=== PATIENT | male | born 1955 | race Caucasian/White ===

== ENCOUNTER 2020-11-21 01:34 | Outpatient (CLI) | payer OTHER, SELFPAY ==
--- NOTE | 2020-11-21 14:08 | ST.MBS ---
Date of Service Date of service: 11/21/20 Time of Service: 14:08 Modified Barium Swallow Study Findings: Videofluoroscopic Swallowing Evaluation / Modified Barium Swallow Study (VFSE/MBSS) Speech Language Pathology Report HPI: Pt is a 65 year old male referred for VFSE/MBSS given overt s/sx aspiration during recent clinical swallow evaluation (11/09/20); patient is s/p right arytenoidectomy and right cordotomy on 09/02/2020 with hospital course notable for abnormal postop chest x-ray which improved following day; prolonged hospitalization in fall of 2018 requiring multiple intubations, felt to be likely cause for b/l VF immobility. PMHx: Acute metabolic encephalopathy Asthma Type 2 diabetes mellitis History of tracheostomy Vocal cord paralysis, bilateral/complete Dysphonia Previous Imaging: ENT / Laryngoscopy - 11/17/20 Bilateral vf paralysis, median-paramedian position; right arytenoid mucosa hoods prior surgical site; posterior glottic opening visible SUBJECTIVE: Patient arrived breathing/speaking comfortably with intermittent biphasic stridor (inhalation>exhalation); Complains of ongoing coughing fits with excessive phlegm; denies difficulties with tolerating regular solid foods/thin liquids, also reports trial of Tessalon pearls once daily since visit with ENT which he is currently unsure if this is helpful MDADI: Global Score 5; Composite Score 84.2 OBJECTIVE: Videofluoroscopic Swallow Evaluation (VFSE/MBSS) was conducted in the lateral and [id number] projections by Speech-Language Pathologist, in collaboration with Radiologist, to evaluate oropharyngeal swallow function. Anatomic view under fluoroscopy: WFL PO barium contrast trials: Oral barium water soluble contrast was administered as follows: IDDSI Level 0 Varibar thin liquid (40% w/v) IDDSI Level 2 Varibar nectar thick/mildly thick liquid (40% w/v) IDDSI Level 3 Varibar thin honey/liquidised/moderately-thick (40% w/v) IDDSI Level 4 Varibar pudding/pureed/extremely thick (40% w/v) IDDSI Level 7 Regular Solid: 1/2 jerry cracker coated in 3 mL Varibar pudding PHYSIOLOGIC FINDINGS Oral Phase 1 Lip Closure: 0-No labial escape 2 Tongue Control: 0- Cohesive bolus between tongue to palatal seal 3 Bolus Preparation/Mastication: 0- Timely and efficient chewing/mashing 4 Bolus Transport/Lingual Motion: 0- Brisk tongue motion 5 Oral residue: 1- Trace residue lining oral structures Location: tongue 6 Initiation of pharyngeal swallow: 0- Bolus head at posterior angle of ramus; first hyoid excursion Pharyngeal Phase 7 Velar Elevation: 0- No bolus between soft palate and pharyngeal wall 8 Laryngeal Elevation: 0- Complete superior movement of thyroid cartilage with complete approximation of arytenoids to epiglottic petiole 9 Anterior Hyoid Excursion: 0- Complete anterior movement 10 Epiglottic Movement: 0- Complete inversion 11 Laryngeal Vestibule Closure: 0- Complete; no air/contrast in laryngeal vestibule Penetration not observed 12 Pharyngeal Stripping Wave: 0- Present; complete 13 Pharyngeal Contraction: 0- Complete 14 PES/UES Openin- Complete distension and complete duration; no obstruction of flow 15 Tongue Base Retraction: 0- No contrast between tongue base and posterior pharyngeal wall 16 Pharyngeal residue: 0-Complete pharyngeal clearance [place] Pharyngeal Residue Severity Rating Scale (YPRS) (Rachel, et al, 2015) Vallecula Residue Severity I None 0% No residue Pyriform Sinus Residue Severity I None 0% No residue Esophageal Phase 17 Esophageal Clearance Upright Position: 0-Complete clearance; esophageal coating; small posterior hypertrophy noted at level of cervical esophagus between C4-C5; does not appear to effect efficiency of swallow/airway safety (see below) NOTE: This study was performed for interpretation only of the oropharyngeal and pharyngoesophageal domains of swallowing. It is not intended to diagnose any other radiologic abnormalities or substitute for a formal esophagram study. Overall 8-Point Penetration-Aspiration Scale (PAS) (Rosenpalmerk, et al, 1996) 1 - No material enters the airway. 2 - Material enters the airway, remains above the vocal folds, and is ejected from the airway. 3 - Material enters the airway, remains above the vocal folds, and is not ejected from the airway. 4 - Material enters the airway, contacts the vocal folds, and is ejected from the airway. 5 - Material enters the airway, contacts the vocal folds, and is not ejected from the airway. 6 - Material enters the airway, passes below the vocal folds, and is ejected into the larynx or out of the airway. 7 - Material enters the airway, passes below the vocal folds, and is not ejected from the trachea despite effort. 8 - Material enters the airway, passes below the vocal folds, and no effort is made to eject. DIGEST Score: Safety Grade 0 / Efficiency Grade 0 = 0 - Overall No Pharyngeal Impairment (0=No Impairment, 1=Mild, 2=Moderate, 3=Severe, 4=Life Threatening) The Dynamic Imaging Grade of Swallowing Toxicity (DIGEST) Score represents a set of structured criteria primarily validated for head and neck cancer patients to grade the interaction of safety, efficiency, and overall impairment of the pharyngeal swallow, meant to assist in prioritization of targets for dysphagia treatment planning. (Wally et al. Cancer. 2017;123(1):62-70) Clinical Indicator(s) of Prandial/Postprandial Aspiration: N/A Dysphagia Outcome and Severity Scale (NAPOLEON) LEVEL 7 - Full PO: normal diet - Normal in all situations IMPRESSIONS: Swallow safety is preserved; swallow efficiency is preserved. Oropharyngeal swallow function appears WFL; patient denies abnormal sensation(s) throughout and after completion of procedure; small posterior hypertrophy noted at level of cervical esophagus between C4-C5; does not appear to effect function of oropharyngeal swallow. Patient continues to demonstrate dysphonia as characterized by breathy/hoarse vocal quality with intermittent biphasic stridor (inhalation>exhalation). Patient appears to be at low risk for potential aspiration PNA, pulmonary compromise and low risk for malnutrition/dehydration. Swallow prognosis is excellent given lack of physiologic abnormalities noted from today's study; voice quality is likely to improve with continued participation in DEPARTMENT STORE MANAGER plan of care; patient continues to be a good candidate for behavioral voice rehabilitation. PLAN: Diet recommendation: IDDSI Level 7-Regular Solids, 0-Thin Liquids Risk Management: Continue with behavioral reflux precautions, including upright position during + 90 mins after meals. Control risk factors for aspiration pneumonia via (a) thorough oral hygiene & (b) maintaining physical mobility as tolerated Specialist referrals: N/A - Pt has scheduled ENT f/u appt Ancillary tests: N/A Therapy: Recommend subsequent outpatient session with DEPARTMENT STORE MANAGER for continued behavioral voice rehabilitation; re-administer RSI for monitoring of reflux symptomology Follow-up exam: N/A Thank you for allowing me to take part in this patient's care. Please feel free to contact me with any questions/concerns. Margaret Greer MA [facility]-DEPARTMENT STORE MANAGER Speech Language Pathologist Coding CPT Codes MOTION FLUOROSCOPY/SWALLOW - [id number] ([id number])
--- NOTE | 2020-11-21 14:53 | DI.RAD_ITS ---
Exam(s) RF MODIFIED SPEECH BA SWALLOW TECHNIQUE: Modified barium swallow was performed in conjunction with speech pathology. CONTRAST MATERIAL: Oral barium Oral water soluble contrast was administered. COMPARISON: No exams were available for comparison FINDINGS: Fluoroscopy was provided by the radiologist during modified barium swallow study performed in conjunc tion with the speech therapist. Please see speech pathology report. There was no aspiration evident during this study. IMPRESSION: No aspiration evident See speech pathologist report RADIATION DOSE DELIVERED: natalia Estrada=23.9 mGy
[2020-11-21] MEDS: Barium Sulfate 81% w/w for Oral Suspension 148 GM BTL PO (15:09)
[2020-11-21] MEDS: Barium Sulfate 40% W/V 240 ML BTL PO (15:10)
[2020-11-21] MEDS: Barium Sulfate 40% W/V 1500 CPS 250 ML BTL PO (15:11)
[2020-11-21] MEDS: Barium Sulfate Oral Paste 40% W/V 230 ML TUBE PO (15:11)
== END 2020-11-21 01:54 ==
PROVIDERS: PCP Otolaryngology; Visit Provider Speech-Language Pathologist
DX: J38.02 Paralysis of vocal cords and larynx, bilateral (principal); Z90.89 Acquired absence of other organs; R49.0 Dysphonia
CPT/HCPCS: 92611; 74221

== ENCOUNTER 2020-11-21 02:55 | Outpatient (CLI) | payer OTHER, SELFPAY ==
[2020-11-21 11:33] LABS: Source Nasal/Nares
[2020-11-21 16:50] LABS: COVID-19 PCR Negative (Negative)
== END 2020-11-21 02:56 | disposition home or self-care (01) ==
LOC: LBO 02:55
PROVIDERS: PCP Otolaryngology; Visit Provider Family Medicine
DX: Z20.822 Contact with and (suspected) exposure to COVID-19 (principal); Z01.818 Encounter for other preprocedural examination
CPT/HCPCS: 87635

== ENCOUNTER 2024-04-13 01:37 | Outpatient (CLI) | payer OTHER, SELFPAY ==
--- NOTE | 2024-04-13 09:09 | ST.MBS ---
Date of Service Date of service: 04/13/24 Time of Service: 09:00 Modified Barium Swallow Study Findings: Video fluoroscopic Swallowing Evaluation (VFSE) / Modified Barium Swallow Study (MBSS) Speech Language Pathology Report Patient referred for VFSE/MBSS from Mattie Busby secondary to dysphagia. HPI & Patient report of function: Patient is a 69 yo male who was referred for MBSS secondary to symptoms of 'liquids going down the wrong way' occurring daily, which has been ongoing for the past several months. He notes this occasionally happens with solids. No issues with taking pills. No changes with voice since 2020. No recent hx pneumonia. PMHx: Mo has a history of bilateral vocal cord paralysis s/p hx prolonged and recurrent intubations during hospitalization following suicide attempts in 2018. He is s/p laryngeal surgeries including R arytenoiectomy in August 2020. He underwent a prior MBSS in November 2020 which revealed normal oral pharyngeal swallow function. Patient observed to breathe/speak comfortably with intermittent biphasic stridor. He states he tried voice therapy in the past but it was not a positive experience and he discontinued it. IMPRESSIONS: Oral pharyngeal swallow function is within functional limits. There is some mildly impaired sensory function noted: with mild vallecular retention of pudding, the patient did not feel residue, though all residue is eventually cleared spontaneously with repeat swallows/liquid wash. There is no evidence of penetration/aspiration/pharyngeal retention during the study. Overall study appears comparable with last assessment in 2020. Findings and film reviewed with patient at end of study. Education provided re: physiology of swallowing and impacts of bilateral vocal fold paralysis/chronic heightened risk for aspiration. While this study showed WNL oral pharygneal strength and coordination, ultimately it is a 'snapshot' in time, and thus possible that it is not fully guest experience representative of normal habits (eg drinking quickly, larger sips/bites, multi-tasking while drinking/eating). This may explain symptoms. Encouraged patient to focus on small/single/slow sips and bites. Mo was not interested in returning for MOTORCYCLE DELIVERER services for voice. RECOMMENDATIONS: Diet Texture Recommendation:? IDDSI LEVEL SOLIDS 7-Regular Solids LIQUIDS 0-Thin Liquids MEDICATIONS Whole with sip liquids Risk Management Strategies:? Small bites, approx [id number] Small sips, approx 10 mL Encourage avoidance of straws Alternate solids/liquids as able Multiple swallows per bolus to encourage clearance of pharyngeal stasis/residue Control risk factors for aspiration pneumonia via (a) thorough oral hygiene & (b) maintaining physical mobility as tolerated PLAN: Evaluation only. Results reviewed at time of evaluation. Patient expressed he is not interested in MOTORCYCLE DELIVERER services for trial of voice therapy. If he changes his mind, we would be happy to see him for voice intervention. Anticipate some maladaptive tension-holding patterns further contributing to hoarseness. OBJECTIVE Videofluoroscopic Swallow Evaluation (VFSE/MBSS) was conducted in the lateral projection by Speech-Language Pathologist, in collaboration with Radiologist, to evaluate oropharyngeal swallow function. Anatomic view under fluoroscopy: WFL PO Barium Contrast Trials Oral barium water-soluble contrast was administered as follows: IDDSI Level 0 Varibar thin liquid (40% w/v) IDDSI Level 2 Varibar nectar thick/mildly thick liquid (40% w/v) IDDSI Level 4 Varibar pudding/pureed/extremely thick (40% w/v) IDDSI Level 7 Regular Solid: 1/2 jerry cracker coated in 3 mL Varibar pudding MBSImP Component Scores: COMPONENT Scale SCORE 1 Lip closure (0-4) 0 Resulted in no labial escape 2 Hold Position (0-3) 0 Maintained a cohesive bolus between tongue to palatal seal 3 Bolus Preparation (0-4) 0 Resulted in timely and efficient chewing and mashing 4 Bolus Transport (0-4) 0 Was with brisk tongue motion 5 Oral Residue (0-4) 0 Was not observed. There was complete oral clearance 6 Swallow Initiation (0-4) 0 Occurred as bolus head at posterior angle of the mandibular ramus 7 Soft Palate Elevation (0-4) 0 Resulted in no bolus between soft palate and the pharyngeal wall 8 Laryngeal Elevation (0-3) 0 Demonstrated complete superior movement of thyroid cartilage with complete approximation of arytenoids to epiglottic petiole 9 Anterior Hyoid Motion (0-2) 1 Slightly diminished anterior movement 10 Epiglottic Movement (0-2) 0 Resulted in complete inversion 11 Laryngeal Closure (0-2) 0 Was complete with no air or contrast in laryngeal vestibule 12 Pharyngeal Stripping Wave (0-2) 1 Was present, but diminished 13 Pharyngeal Contraction (0-3) 0 Was complete 14 PES Opening (0-3) 0 Was completely distended and complete duration with no obstruction of flow 15 Tongue Base Retraction (0-4) 1 Allowed a trace column of contrast or air between tongue base and pharyngeal wall 16 Pharyngeal Residue (0-4) 1 Showed a trace within or on pharyngeal structures (Mild vallecular and pyriform residue with pudding. Did not identify sensation when asked, though cleared with subsequent swallows). 17 Esophageal Clearance (0-4) 0 Was complete, with only a coating of contrast, if any there is small posterior hypertrophy noted at level of cervical esophagus (C4-C5) that does not appear to effect bolus clearance or swallow efficiency and is unchanged from last evaluation in 2020. Results: COMPONENT Scale SCORE 1 Oral Score (0-18) 0 2 Pharyngeal Score (0-29) 1 3 Esophageal Score (0-4) 0 Penetration-Aspiration Scale: COMPONENT Scale SCORE 1 Thin liquid (1-8) 1 Contrast did not enter the airway 2 [place] thick (1-8) 1 Contrast did not enter the airway 3 Honey thick (1-8) NA 4 Pudding thick (1-8) 1 Contrast did not enter the airway 5 Cookie (1-8) 1 Contrast did not enter the airway Thank you for allowing us to take part in this patient's care. Please feel free to contact the [facility] Speech Language Pathology Department with any questions/concerns.
--- NOTE | 2024-04-13 09:33 | DI.RAD_ITS ---
Exam(s) RF MODIFIED SPEECH BA SWALLOW TECHNIQUE: Modified barium swallow was performed in conjunction with speech pathology. CONTRAST MATERIAL: Oral barium Oral water soluble contrast was administered. COMPARISON: No exams were available for comparison FINDINGS: Fluoroscopy was provided by the radiologist during modified barium swallow study formed our departmen t with the speech pathologist. The radiologist was present in the fluoroscopy suite for this entire procedure. See separate speech therapist report. IMPRESSION: No evidence of obvious aspiration. RADIATION DOSE DELIVERED: natalia Estrada=2.67 mGy
[2024-04-13] MEDS: Barium Sulfate 81% w/w for Oral Suspension 148 GM BTL PO (09:46)
[2024-04-13] MEDS: Barium Sulfate 40% W/V 240 ML BTL PO (09:48)
[2024-04-13] MEDS: Barium Sulfate Oral Paste 40% W/V 230 ML TUBE PO (09:49)
== END 2024-04-13 01:57 ==
LOC: DI 01:37
PROVIDERS: PCP Otolaryngology; Visit Provider Otolaryngology
DX: R13.10 Dysphagia, unspecified (principal)
CPT/HCPCS: 92526; 74221